=== PATIENT | female | born 1950 | race Caucasian/White ===

== ENCOUNTER → 2024-05-23 | Outpatient (BNVA) | payer MEDICARE, SELFPAY | END | disposition home or self-care (01) | PROVIDERS: PCP Nurse Practitioner Family; Referring Provider Nurse Practitioner Family; Visit Provider Nurse Practitioner Family | DX: E03.9 Hypothyroidism, unspecified (principal); K59.00 Constipation, unspecified; Z71.2 Person consulting for explanation of examination or test findings | CPT/HCPCS: 99212; G0463 ==

== ENCOUNTER → 2024-06-27 | Outpatient (BNVA) | payer MEDICARE, SELFPAY | END | disposition home or self-care (01) | PROVIDERS: PCP Nurse Practitioner Family; Referring Provider Nurse Practitioner Family; Visit Provider Nurse Practitioner Family | DX: L02.818 Cutaneous abscess of other sites (principal) | CPT/HCPCS: 96372; 99215; A4216; J0696; J3490 ==

== ENCOUNTER → 2024-06-30 | Outpatient (BNVA) | payer MEDICARE, SELFPAY | END | disposition home or self-care (01) | PROVIDERS: PCP Nurse Practitioner Family; Referring Provider Nurse Practitioner Family; Visit Provider Nurse Practitioner Family | DX: L02.91 Cutaneous abscess, unspecified (principal) | CPT/HCPCS: 96372; 99214; A4216; J0696 ==

== ENCOUNTER → 2024-07-01 | Outpatient (BNVA) | payer MEDICARE, SELFPAY | END | disposition home or self-care (01) | PROVIDERS: PCP Nurse Practitioner Family; Referring Provider Nurse Practitioner Family; Visit Provider Nurse Practitioner Family | DX: L02.91 Cutaneous abscess, unspecified (principal) | CPT/HCPCS: 99214 ==

== ENCOUNTER → 2024-07-11 | Outpatient (BNVA) | payer MEDICARE, SELFPAY | END | disposition home or self-care (01) | PROVIDERS: PCP Nurse Practitioner Family; Referring Provider Nurse Practitioner Family; Visit Provider Nurse Practitioner Family | DX: Z51.89 Encounter for other specified aftercare (principal) | CPT/HCPCS: 99213 ==

== ENCOUNTER → 2024-07-24 | Outpatient (BNVA) | payer MEDICARE, SELFPAY | END | disposition home or self-care (01) | PROVIDERS: PCP Nurse Practitioner Family; Referring Provider Nurse Practitioner Family; Visit Provider Nurse Practitioner Family | DX: Z71.2 Person consulting for explanation of examination or test findings (principal); Z12.31 Encounter for screening mammogram for malignant neoplasm of breast; Z13.820 Encounter for screening for osteoporosis; R73.03 Prediabetes; E03.9 Hypothyroidism, unspecified; H61.23 Impacted cerumen, bilateral; F03.A18 Unspecified dementia, mild, with other behavioral disturbance; E78.5 Hyperlipidemia, unspecified; Z71.89 Other specified counseling | CPT/HCPCS: 93005; 99215 ==

== ENCOUNTER → 2024-08-08 | Outpatient (BNVA) | payer MEDICARE, SELFPAY | END | disposition home or self-care (01) | PROVIDERS: PCP Nurse Practitioner Family; Referring Provider Nurse Practitioner Family; Visit Provider Nurse Practitioner Family | DX: Z71.2 Person consulting for explanation of examination or test findings (principal); E03.9 Hypothyroidism, unspecified; R73.03 Prediabetes; N39.0 Urinary tract infection, site not specified; E78.5 Hyperlipidemia, unspecified | CPT/HCPCS: 99212; G0463 ==

== ENCOUNTER → 2024-10-03 | Outpatient (BNVA) | payer MEDICARE, SELFPAY | END | disposition home or self-care (01) | PROVIDERS: PCP Nurse Practitioner Family; Referring Provider Nurse Practitioner Family; Visit Provider Nurse Practitioner Family | DX: Z12.11 Encounter for screening for malignant neoplasm of colon (principal); N39.0 Urinary tract infection, site not specified | CPT/HCPCS: 81001; 96372; 99214; A4216; J0696 ==

== ENCOUNTER → 2024-10-09 | Outpatient (BNVA) | payer MEDICARE, SELFPAY | END | disposition home or self-care (01) | PROVIDERS: PCP Nurse Practitioner Family; Referring Provider Nurse Practitioner Family; Visit Provider Nurse Practitioner Family | DX: N39.0 Urinary tract infection, site not specified (principal); Z71.2 Person consulting for explanation of examination or test findings | CPT/HCPCS: 99212; G0463 ==

== ENCOUNTER → 2024-10-21 | Outpatient (BNVA) | payer MEDICARE, SELFPAY | END | disposition home or self-care (01) | PROVIDERS: PCP Nurse Practitioner Family; Referring Provider Nurse Practitioner Family; Visit Provider Nurse Practitioner Family | DX: N39.0 Urinary tract infection, site not specified (principal) | CPT/HCPCS: 99212; G0463 ==

== ENCOUNTER → 2024-11-10 | Outpatient (BNVA) | payer SELFPAY | END | disposition home or self-care (01) | PROVIDERS: PCP Nurse Practitioner Family; Referring Provider Nurse Practitioner Family; Visit Provider Nurse Practitioner Family | DX: N39.0 Urinary tract infection, site not specified (principal); N20.0 Calculus of kidney | CPT/HCPCS: 99214 ==

== ENCOUNTER 2024-12-01 11:28 | Emergency (ER) | payer MEDICARE, SELFPAY ==
[2024-12-01 11:28] VITALS: BMI 19.0
[2024-12-01 12:20] VITALS: BP 110/75; PULSE 103; RESP 20; TEMP 36.6; O2SAT 94
[2024-12-01 14:30] VITALS: BP 123/86; PULSE 105; RESP 18; TEMP 36.8; O2SAT 97
--- NOTE | 2024-12-01 15:15 | XR_ITS ---
Examination: CT abdomen and pelvis without contrast. Coronal 3-D reconstructions. Sagittal 2-D reconstructions. Date and time of exam:December 01, 2024 1532 hours Comparison November 12, 2023 INDICATIONS: Lower abdominal pain with difficulty urinating today, history large staghorn calculus right renal pelvis on CT study November 12, 2023 CTDI: vol (mGy): 6.67 DLP: (mGycm): 315 Technique: Axial images of the abdomen have been obtained, 3 mm slice thickness Intravenous contrast material has not been administered. Low dose protocols were performed. One or more of the following dose reduction techniques were used; automated exposure control, adjustment of the mA and/or KV according to patient size, use of iterative reconstruction technique. Findings: Mild aneurysmal dilatation ascending thoracic aorta 3.1 cm Atelectasis in the right lower lobe. No visualized liver or splenic lesion Contracted gallbladder with gallstones Common bile duct measures 9 mm Abdominal aortic calcification no aneurysmal dilatation Large staghorn calcifications occupying the right renal pelvis and calyces without significant hydronephrosis No bowel obstruction No pericecal inflammatory change No diverticulitis Urinary bladder is not distended The uterus is not visualized No pelvic mass Severe osteopenia with advanced degenerative disc disease L4-L5, L5-S1, chronic osteoporotic compression T12, advanced left hip osteoarthritis, right hip arthroplasty with satisfactory alignment IMPRESSION: Cholelithiasis Enlarged common bile duct 9 mm, recommend hepatobiliary sonography follow-up Large staghorn calcifications occupying right renal pelvis and calyces without significant hydronephrosis Urinary bladder is not distended No pelvic mass
--- NOTE | 2024-12-01 15:15 | PD.EDFMALE ---
ED Female Urogenital RME/HPI General Chief complaint: Urogenital-Female Stated complaint: CAN'T PEE FOR 2 DAYS HX STONES Time Seen by Provider: 12/01/24 14:56 Arrival date/time: 12/01/24 11:28 Limitations: no limitations RME / HPI RME / HPI Narrative: 74-year-old female is here today with her caregiver with a 2-day history of urinary frequency without significant output. She denies any nausea, vomiting, or abdominal pain. Has no fevers or chills. She does have a history of prior UTIs and staghorn stone in the right kidney. She is followed by her primary care provider for this and has been cleared by urology in the past. Patient has a history of hypothyroidism. There are no other other complaints or concerns. Related Data Home Medications ?Medication ?Instructions ?Recorded ?Confirmed mecobalamin (vitamin B12) 5,000 mcg PO 07/04/23 11/10/24 mcg disintegrating tablet ascorbate calcium (vitamin C) 500 500 mg PO QDAY 10/17/23 11/10/24 mg tablet calcium carbonate 600 mg PO QDAY 05/23/24 11/10/24 memantine 10 mg tablet 10 mg PO BID 07/24/24 11/10/24 cholecalciferol (vitamin D3) 25 25 mcg PO QDAY 08/08/24 11/10/24 mcg (1,000 unit) capsule levothyroxine 75 mcg capsule 75 mcg PO QDAY 11/10/24 11/10/24 Previous Rx's ?Medication ?Instructions ?Recorded aspirin 81 mg capsule 81 mg PO QDAY #90 caps 08/08/24 cephalexin 500 mg capsule 500 mg PO TID 7 days #21 caps 12/01/24 Allergies Allergy/AdvReac Type Severity Reaction Status Date / Time No Known Allergies Allergy Verified 12/01/24 11:30 Review of Systems Review of Systems Systems Reviewed: All systems reviewed, normal except as documented ED Exam General Limitations: Present no limitations General appearance: Present alert and in no apparent distress Head Head exam: Present atraumatic Eye Eye exam: Present normal appearance, PERRL and EOMI ENT ENT exam: Present normal exam, normal oropharynx and mucous membranes moist Neck Neck exam: Present normal inspection, full ROM and trachea midline Chest Chest inspection: Present normal inspection and symmetric chest wall rise Respiratory Respiratory exam: Present normal lung sounds bilaterally Cardiovascular Cardiovascular exam: Present regular rate, normal rhythm and normal heart sounds Abdominal Exam Abdominal exam: Present soft and normal bowel sounds Extremities Exam Extremities exam: Present normal inspection and full ROM Back Exam Back exam: Present normal inspection and full ROM Neurological Exam Neurological exam: Present alert and oriented X3 Psychiatric Psychiatric exam: Present normal affect and normal mood Skin Skin exam: Present warm, dry, intact and normal color Course Quality Measures none Orders Category Date Time Status [place] to [place] Routine Care 12/01/24 12:04 Ordered In and Out Catheter X1 Care 12/01/24 16:[address] abdomen pelvis wo con Stat Exams 12/01/24 15:15 Completed CBC Stat Lab 12/01/24 15:29 Completed CMP [Comprehensive Metabolic Panel] Stat Lab 12/01/24 15:29 Completed Urinalysis Stat Lab 12/01/24 16:13 Completed Urine Culture Stat Lab 12/01/24 16:13 Received Sodium Chloride 0.9% 1000 ml [Ns] 1,000 ml Med 12/01/24 17:55 Ordered IV 999 mls/hr cephALEXin [Keflex] Med 12/01/24 17:55 Once 500 mg PO X1 ONE Vital Signs Vital signs: Vital Signs Temperature 97.8 F 12/01/24 12:20 Pulse Rate 103 H 12/01/24 12:20 Respiratory Rate 20 12/01/24 12:20 Blood Pressure 110/75 12/01/24 12:20 Pulse Oximetry (%) 94 L 12/01/24 12:20 Oxygen Delivery Method Room Air 12/01/24 12:20 Urogenital - Female MDM Narrative MDM Narrative:: 74-year-old female is here today with her caregiver with a 2-day history of urinary frequency without significant output. She denies any nausea, vomiting, or abdominal pain. Has no fevers or chills. She does have a history of prior UTIs and staghorn stone in the right kidney. She is followed by her primary care provider for this and has been cleared by urology in the past. Patient has a history of hypothyroidism. There are no other other complaints or concerns. Bladder scan was performed upon presentation and was unremarkable. Workup was initiated. On exam, patient is nontoxic-appearing and in no visible signs stress. Vital signs are stable. Workup reveals no leukocytosis or anemia. Metabolic panel is unremarkable. Urinalysis shows 143 erythrocytes and 303 leukocytes. +[address] of the abdomen pelvis revealed no urethral lithiasis. Patient was given fluid bolus here in addition to oral Keflex. She will be discharged with Keflex. Patient and her caregiver states they have a pending appointment with urology for frequent UTIs. She is encouraged to continue with this. Follow-up with primary doctor. 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 Social determinants that could affect healthcare access:: none Patient has the following chronic illnesses:: Frequent UTIs How is presenting disease/condition affected by chronic disease/condition?: exacerbated by Evaluation data The following diagnostics were reviewed and interpreted by me:: lab results (Consistent with UTI) and radiology exam(s) (No urethral lithiasis, stable staghorn stone noted in the right kidney) Lab and/or radiology exams considered but not ordered:: n/a Interpretation Summary: UTI Medications / Prescriptions Medications or Prescriptions considered but not ordered:: n/a Medication administrations:: Medication Administration History Cephalexin HCl (Cephalexin 250 Mg Capsule) 500 mg PO X1 ONE Stop: 12/01/24 17:56 Sodium Chloride (Ns) 1,000 mls @ 999 mls/hr IV .Q1H1M ONE Stop: 12/01/24 18:55 See above Consultations Consultation(s) initiated? (list below): No Diagnosis Urogenital Female Differential Diagnosis: urinary tract infection and cystitis Most likely diagnosis given after review of the tests above:: n/a Admission Indicated Admission indicated?: not indicated Admission Request Was there a request for admission?: No Disposition Plan Disposition Plan: Discharge Discharge Attestation Discharge Attestation: The patient and all family members were given an opportunity to ask questions and understood the discharge instructions. Discharge instructions specifically effects, indications for sooner follow up or return to the emergency department, and the expected course of current diagnosis. Patient condition: Stable Discharge Plan Plan Patient Disposition: HOME (Self Care) Patient condition on transfer: Stable Prescriptions/Referrals Prescriptions/Med Rec: New cephalexin 500 mg capsule 500 mg PO TID 7 Days Qty: 21 0RF No Action mecobalamin (vitamin B12) 5,000 mcg tablet,disintegrating PO ascorbate calcium (vitamin C) 500 mg tablet 500 mg PO QDAY calcium carbonate 600 mg calcium (1,500 mg) tablet 600 mg PO QDAY memantine 10 mg tablet 10 mg PO BID cholecalciferol (vitamin D3) 25 mcg (1,000 unit) capsule 25 mcg PO QDAY aspirin 81 mg capsule 81 mg PO QDAY Qty: 90 0RF levothyroxine 75 mcg capsule 75 mcg PO QDAY Referrals: [facility],Brigida Ortiz [employer] [facility] [employer] [Primary Care Provider] - In 1 week Problem List Clinical Impression: Acute UTI Patient/Caregiver Discharge Instructions Education Materials: ED CYSTITIS Female Adult Additional Instructions: - Increase oral hydration. - Use the provided antibiotics as prescribed. - Follow-up closely with your primary doctor and urologist as planned. - Return here at anytime for any worsening or emergent changes. Print Language: Austrian Stand Alone Forms: Joan Award Info., Patient Portal Info Letter
[2024-12-01 16:28] LABS: Collection Type, Urine Catheter
[2024-12-01 16:54] LABS: Basophils # (Auto) 0.0 Thou/mm3 (0.0-0.2); Basophils % (Auto) 1 % (0-2.5); Eosinophils # (Auto) 0.1 Thou/mm3 (0.0-0.5); Eosinophils % (Auto) 1 % (0-10); Hematocrit 42.0 % (36.0-46.0); Hemoglobin 13.8 g/dL (12.0-16.0); Immature Granulocytes Auto 0.02 Thou/mm3 (0.00-0.00); Lymphocytes # (Auto) 1.8 Thou/mm3 (1.0-4.8); Lymphocytes % (Auto) 24 % (10-50); Mean Corpuscular HGB Conc 32.9 g/dl (31.0-37.0); Mean Corpuscular Hemoglobin 32.8 pg (25.0-35.0); Mean Corpuscular Volume 100 fL (80-100); Monocytes # (Auto) 0.6 Thou/mm3 (0.0-0.8); Monocytes % (Auto) 8 % (0-12); Neutrophils # (Auto) 4.9 Thou/mm3 (1.8-7.7); Neutrophils % (Auto) 67 % (37-80); Nucleated Red Blood Cell # 0.00 Thou/mm3 (0.00-0.00); Nucleated Red Blood Cell % 0 /100 WBC (0); Platelet Count 263 Thou/mm3 (140-440); RDW Standard Deviation 46.9 fL (36.4-46.3); Red Blood Count 4.21 Miln/mm3 (4.00-5.20); White Blood Count 7.4 Thou/mm3 (3.6-11.0)
[2024-12-01 16:55] LABS: Bacteria,Urine 1+; Bilirubin,Urine Negative (Negative); Blood,Urine 3+ (Negative); Color,Urine Yellow (Lt Yel-Yel); Glucose, Urine Negative (Negative); Ketones,Urine Negative (Negative); Leukocyte Esterase,Urine Positive (Negative); Nitrite,Urine Positive (Negative); PH,Urine 7.0 (5.0-7.0); Protein,Urine 2+ (Neg - Trace); RBC,Urine 143 /hpf (0-3); Specific Gravity,Urine 1.022 (1.001-1.035); Squamous Epithelial Cell,Urine 2 /hpf (0-5); Urobilinogen,Urine Negative mg/dL (0.0-1.0); WBC,Urine 333 /hpf (0-5)
[2024-12-01 16:58] LABS: Clarity,Urine Hazy (Clear/Hazy)
[2024-12-01 17:23] LABS: Alanine Aminotransferase 7 U/L (10-49); Albumin, Serum 4.1 gm/dL (3.4-4.8); Albumin/Globulin Ratio 1.4 (1.2-2.2); Alkaline Phosphatase 77 U/L (46-116); Anion Gap 11 (7-16); Aspartate Amino Transferase 18 U/L (0-34); BUN/Creatinine Ratio 12 Ratio (12-20); Bilirubin,Total 0.6 mg/dL (0.3-1.2); Blood Urea Nitrogen 13 mg/dL (9-23); Calcium 8.7 mg/dL (8.3-10.6); Calcium (Corrected) 8.7 mg/dL (8.5-10.1); Carbon Dioxide 26.7 mMol/L (20.0-31.0); Chloride 108 mMol/L (98-107); Creatinine (Component) 1.1 mg/dL (0.6-1.3); Estimated Creatinine Clearance 34.6 mL/min (>60); Globulin 2.9 gm/dL (2.3-3.5); Glucose 96 mg/dL (74-106); Osmolality,Calculated 290 (275-295); Potassium 4.5 mMol/L (3.4-5.1); Sodium 146 mMol/L (136-145); Total Protein 7.0 gm/dL (5.7-8.2); eGFR 52 See Note
[2024-12-01 18:25] VITALS: BP 137/90; PULSE 75; RESP 17; TEMP 36.7; O2SAT 96
== END 2024-12-01 19:35 | disposition home or self-care (01) ==
PROVIDERS: Physician Assistant Medical; Emergency Provider Family Medicine; PCP Nurse Practitioner Family
DX: N39.0 Urinary tract infection, site not specified (principal); E03.9 Hypothyroidism, unspecified; K80.20 Calculus of gallbladder without cholecystitis without obstruction; N20.0 Calculus of kidney
CPT/HCPCS: 36415; 74176; 80053; 81001; 85025; 87077; 87086; 87186; 99284; A9270

== ENCOUNTER → 2024-12-05 | Outpatient (BNVA) | payer MEDICARE, SELFPAY | END | disposition home or self-care (01) | PROVIDERS: PCP Nurse Practitioner Family; Referring Provider Nurse Practitioner Family; Visit Provider Nurse Practitioner Family | DX: Z09 Encounter for follow-up examination after completed treatment for conditions other than malignant neoplasm (principal); N39.0 Urinary tract infection, site not specified | CPT/HCPCS: 99213 ==

== ENCOUNTER → 2025-03-17 | Outpatient (BNVA) | payer MEDICARE, SELFPAY | END | disposition home or self-care (01) | PROVIDERS: PCP Nurse Practitioner Family; Referring Provider Nurse Practitioner Family; Visit Provider Nurse Practitioner Family | DX: Z71.2 Person consulting for explanation of examination or test findings (principal); E03.9 Hypothyroidism, unspecified; B35.1 Tinea unguium; E78.5 Hyperlipidemia, unspecified; R73.03 Prediabetes; Z23 Encounter for immunization | CPT/HCPCS: 90471; 90472; 90677; 90686; 90715; 99215; G0009 ==